=== PATIENT | female | born 1970 | race Caucasian/White ===

== ENCOUNTER 2019-01-06 17:26 | Emergency (ER) | payer SELFPAY ==
[~2019-01-06] VITALS: Ht 172.7 cm; Wt 59.0 kg
[2019-01-06] MEDS ORDERED: HYDROcodone/APAP 5/325MG 1 TAB TABLET PO ONE (18:15)
--- NOTE | 2019-01-06 18:35 | PHYS DOC ---
Past Medical History Past Medical History: No Pertinent History (MICHAEL RATLIFF APRN) Past Surgical History: (MICHAEL RATLIFF APRN) Alcohol Use: None Drug Use: None (MICHAEL RATLIFF APRN) Adult General Chief Complaint Chief Complaint: CHEST WALL PAIN HPI HPI 48 year old female presents to ER for complaints of upper chest pain for the past 3 days after being struck in the chest by a ladder which was falling. Patient reports she was working on the floor when other workers went to get off of the ladder causing it to fall striking her in the upper portion of her chest. Patient denies any other injury. Patient states over the past few days it has hurt when she takes a deep breath however she has no exertional shortness of air. Patient denies fever, productive cough, hemoptysis, or palpitations. She has been taking Aleve daily for the pain last dose at 5 AM today. She is a daily cigarette smoker. She denies travel or past history of blood clots or clotting disorder. Patient's LMP was 2-3 years ago stating she has gone through menopause. (MICHAEL RATLIFF APRN) Review of Systems Review of Systems Constitutional: Denies fever or chills [] Eyes: Denies change in visual acuity, redness, or eye pain [] HENT: Denies nasal congestion or sore throat [] Respiratory: Denies cough or shortness of breath [] Cardiovascular: Reports upper chest pain- denies palpitations GI: Denies abdominal pain, nausea, vomiting, bloody stools or diarrhea [] : Denies dysuria or hematuria [] Musculoskeletal: Denies back/neck pain or joint pain [] Integument: Denies rash or skin lesions [] Neurologic: Denies headache, focal weakness or sensory changes. Denies dizziness All other systems were reviewed and found to be within normal limits, except as documented in this note. (MICHAEL RATLIFF APRN) Current Medications Current Medications Current Medications Medications (Trade) Dose Ordered Sig/Adrianna Start Time Stop Time Status Last Admin Dose Admin Acetaminophen/ Hydrocodone Bitart (Lortab 5/325) 1 tab 1X ONCE 01/06/19 18:15 01/06/19 18:16 DC 01/06/19 18:40 1 TAB (ONEL SMITH MD) Allergies Allergies Allergies Coded Allergies Type Severity Reaction Last Updated Verified No Known Drug Allergies 01/06/19 No (ONEL SMITH MD) Physical Exam Physical Exam Constitutional: Well developed, well nourished, no acute distress, non-toxic appearance. [] HENT: Normocephalic, atraumatic, oropharynx moist, nose normal. [] Eyes: Pupils equal, conjunctiva normal, no discharge. [] Neck: Normal range of motion, no tenderness, supple, no stridor. [] Cardiovascular: Heart rate regular rhythm, no murmur [] Lungs & Thorax: Bilateral expiratory wheezing- pt is reluctant to take deep breath. Diminished air movement in bases. Resp. equal. No flailed chest/crepitus or palp. deformity. No ecchymosis to chest wall. Speaking in full sentences. Abdomen: Bowel sounds normal, soft, no tenderness Skin: Warm, dry, no erythema, no rash. [] Back: No tenderness, full ROM Extremities: No tenderness, no cyanosis, no clubbing, ROM intact, no edema. [] Neurologic: Alert and oriented X 3, normal motor function, normal sensory function, no focal deficits noted. [] Psychologic: Affect normal, judgement normal, mood normal. [] (MICHAEL RATLIFF APRN) Current Patient Data Vital Signs Vital Signs Date Time Temp Pulse Resp B/P (MAP) Pulse Ox O2 Delivery O2 Flow Rate FiO2 01/06/19 19:45 84 16 132/81 (98) 98 Room Air 01/06/19 17:30 98.1 98.1 (ONEL SMITH MD) EKG EKG EKG obtained 01/06/19 at 1733 Interpreted by ER physician Sinus rhythm Incomplete rt BBB Rate 91 No STEMI (MICHAEL RATLIFF APRN) Radiology/Procedures Radiology/Procedures [] (MICHAEL RATLIFF APRN) Course & Med Decision Making Course & Med Decision Making Pertinent Imaging studies reviewed. (See chart for details) 1930: Pt was evaluated in the ER for complaints of chest wall injury 3 days ago. Patient had x-ray done and imaging was reviewed by Dr. Smith with no obvious displaced fxs or abnorm. findings. Patient was given dose of [place] while in the ER she had taken Aleve earlier today. EKG was obtained with no acute ST elevation/STEMI. Patient was offered chest CT/labs for further evaluation but preferred no IV, imaging other than chest xray or labs. Patient had bilateral wheezing and was offered DuoNeb treatment she also preferred no additional treatment. Patient states she had some relief in pain following [place] tablet. Patient is requesting to be discharged home without further monitoring or care. Patient has equal nonlabored respirations and is speaking in full sentences. She is denying shortness of air. Will provide patient with incentive spirometer. Smoking cessation was discussed. Will provide patient with small quantity of pain medication with patient being advised to also use Tylenol and/or ibuprofen and if pain severe then she would have stronger pain medication available. Education provided on signs and symptoms to return to ER. Discharge instructions were discussed. Patient to follow-up with primary care physician if symptoms persist or with any concerns. Will provide community clinic resource sheet for follow-up purposes. (MICHAEL RATLIFF APRN) Course & Med Decision Making Staff Physician Addendum: I was working in the ER during the course of this patient's visit. I was available for consultation as needed, but I was not directly involved in the care of this patient. (ONEL SMITH MD) Dragon Disclaimer Dragon Disclaimer This electronic medical record was generated, in whole or in part, using a voice recognition dictation system. (MICHAEL RATLIFF APRN) Departure Departure Impression: Primary Impression: Contusion, chest wall Disposition: 01 HOME, SELF-CARE Condition: STABLE Referrals: NO PCP (PCP) Patient Instructions: Chest Contusion, Incentive Spirometer Additional Instructions: Avoid smoking. Drink plenty of fluids daily. Tylenol and/or ibuprofen as needed for pain as directed on container. Ice and/or heat compress to affected area every 3-4 hours for 20-30 minutes at a time. If symptoms persist or with concerns follow-up with your primary care physician for reevaluation and further care. Scripts Hydrocodone/Apap 5-325 (NORCO 5-325 TABLET) 1 Each Tablet 1 TAB PO PRN Q6HRS PRN for PAIN, #8 TAB 0 Refills No driving or alcohol intake while taking this medication Prov: MICHAEL RATLIFF APRN 01/06/19 MICHAEL RATLIFF APRN Jan 06, 2019 18:35 ONEL SMITH MD Jan 06, 2019 21:22
[2019-01-06] MEDS ORDERED: HYDR-3164 PO (19:40)
[2019-01-06 19:45] VITALS: BP 132/81
--- NOTE | 2019-01-07 02:13 | RAD ---
PA and lateral chest radiograph 01/06/2019 CLINICAL HISTORY: Upper chest pain. Struck in chest 3 days ago by a ladder. PA and lateral digital radiographs of the chest were obtained. No previous studies are available for comparison. The cardiac and mediastinal silhouettes are within normal limits in size and configuration. No acute pulmonary infiltrate is seen. No pleural effusion or pneumothorax is noted. The osseous structures are grossly intact. IMPRESSION: No acute abnormality is seen. Electronically signed by: Bubba Perez MD (01/07/2019 2:10 AM) [id number]
--- NOTE | 2019-01-07 06:33 | EKG ---
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
== END 2019-01-06 19:47 | disposition home or self-care (01) ==
LOC: ER 17:26
DX: S20.219A Contusion of unspecified front wall of thorax, initial encounter (principal); W22.8XXA Striking against or struck by other objects, initial encounter; Y93.89 Activity, other specified; Y92.89 Other specified places as the place of occurrence of the external cause; Y99.8 Other external cause status
CPT/HCPCS: 71046; 93005; 99284

== ENCOUNTER 2019-11-05 11:42 | Emergency (ER) | payer SELFPAY ==
[~2019-11-05] VITALS: Ht 172.7 cm; Wt 59.0 kg
[~2019-11-05 11:42] MED LIST: HYDR-3164 PO
[2019-11-05 11:56] VITALS: BP 131/60
--- NOTE | 2019-11-05 12:11 | PHYS DOC ---
Past Medical History Past Medical History: No Pertinent History Past Surgical History: Smoking Status: Current Every Day Smoker Alcohol Use: None Drug Use: None General Adult EDM: Chief Complaint: WRIST PAIN HPI: HPI: Patient is a 48 year old female who presents with states she has had a ganglion cysts in her right wrist on the radial side for years. She states it has never caused her any problems or gotten any bigger. She states that a week ago she accidentally got her wrist slammed in a door and has had radial bone pain at the wrist and it is to painful to move. She states at times since then she has had numbness or tingling. She states that she has been taking Ibuprofen and using ice. She states she would like to get the ganglion cyst taken out. She states it has not increased in size. She denies skin color or temperature change. Review of Systems: Review of Systems: Musculoskeletal: Denies back pain. Right wrist joint pain. [] Heart Score: Risk Factors: Risk Factors: DM, Current or recent (<one month) smoker, HTN, HLP, family history of CAD, obesity. Risk Scores: Score 0 - 3: 2.5% MACE over next 6 weeks - Discharge Home Score 4 - 6: 20.3% MACE over next 6 weeks - Admit for Clinical Observation Score 7 - 10: 72.7% MACE over next 6 weeks - Early Invasive Strategies Allergies: Allergies: Allergies Coded Allergies Type Severity Reaction Last Updated Verified No Known Drug Allergies 01/06/19 No Physical Exam: PE: Constitutional: Well developed, well nourished, no acute distress, non-toxic appearance. [] HENT: Normocephalic, atraumatic, bilateral external ears normal, oropharynx moist, no oral exudates, nose normal. [] Eyes: PERRLA, EOMI, conjunctiva normal, no discharge. [] Neck: Normal range of motion, no tenderness, supple, no stridor. [] Cardiovascular:Heart rate regular rhythm, no murmur [] Lungs & Thorax: Bilateral breath sounds clear to auscultation [] Abdomen: Bowel sounds normal, soft, no tenderness, no masses, no pulsatile masses. [] Skin: Warm, dry, no erythema, no rash. Wrist cyst. [] Back: No tenderness, no CVA tenderness. [] Extremities: Radial wrist bone pain tenderness, no cyanosis, no clubbing, limited ROM intact, no edema. [] Neurologic: Alert and oriented X 3, normal motor function, normal sensory function, no focal deficits noted. [] Psychologic: Affect normal, judgement normal, mood normal. [] Current Patient Data: Vital Signs: Vital Signs Date Time Temp Pulse Resp B/P (MAP) Pulse Ox O2 Delivery O2 Flow Rate FiO2 11/05/19 11:56 98.4 81 18 131/60 (83) 99 Room Air 98.4 EKG: EKG: [] Radiology/Procedures: Radiology/Procedures: [] Impression: [facility] [address] [place] [address] IMAGING REPORT Signed PATIENT: MAU WEEMS ACCOUNT: [id number] : 1970 LOCATION: ER AGE: 48 SEX: F EXAM STATUS: REG ER ORD. PHYSICIAN: OMKAR FERNANDEZ APRN REASON: pain after arm slammed in a door PROCEDURE: WRIST 3V RIGHT WRIST 3V RIGHT History: Pain. Technique: 3 views right wrist. Comparison: None. Findings: Normal alignment. No fracture. Soft tissues unremarkable. Impression: 1. No acute osseous abnormality. Electronically signed by: Artur Vail DO (11/05/2019 12:48 PM) [id number] DICTATED and SIGNED BY: ARTUR VAIL DO DATE: 11/05/19 1248 Course & Med Decision Making: Course & Med Decision Making Pertinent Labs and Imaging studies reviewed. (See chart for details) Skin pink warm and dry. Cap refill less than 3 seconds. She states that she has tingling to the area at times but not at this item. Full sensations. She states she has a throbbing pain. Radial pulse strong and present. Limited ROM due to pain. She can make a loose fist due to pain. No weakness and no laxity in the joint. No wounds or deformities. Patient is educated that she will need to follow up with a orthopedic for the ganglion cyst. The cyst is soft and nontender. Patient only has radial bone wrist pain tenderness with palpation. Cyst is slightly larger than pea sized. [] Dragon Disclaimer: Dragon Disclaimer: This electronic medical record was generated, in whole or in part, using a voice recognition dictation system. Departure Departure Impression: Primary Impression: Wrist pain, right Disposition: 01 HOME, SELF-CARE Condition: STABLE Referrals: NO PCP (PCP) JANAE PEREZ MD Patient Instructions: Contusion, [id number], Ganglion Cyst Additional Instructions: Follow-up with orthopedic. Wear the splint for the next 1 to 2 weeks. Use ice and ibuprofen to help with your pain. OMKAR FERNANDEZ [employer]CHO[employer] DRAFTING TEACHER November 05, 2019 12:11
--- NOTE | 2019-11-05 12:51 | RAD ---
WRIST 3V RIGHT History: Pain. Technique: 3 views right wrist. Comparison: None. Findings: Normal alignment. No fracture. Soft tissues unremarkable. Impression: 1. No acute osseous abnormality. Electronically signed by: Artur Vail DO (11/05/2019 12:48 PM) [id number]
== END 2019-11-05 13:12 | disposition home or self-care (01) ==
LOC: ER 11:42
DX: M67.431 Ganglion, right wrist (principal); M25.531 Pain in right wrist; F17.200 Nicotine dependence, unspecified, uncomplicated; Z98.890 Other specified postprocedural states
CPT/HCPCS: 29125; 73110; 99283

== ENCOUNTER 2020-11-28 10:23 | Emergency (ER) | payer SELFPAY ==
[~2020-11-28] VITALS: Ht 172.7 cm; Wt 57.0 kg
--- NOTE | 2020-11-28 11:29 | PHYS DOC ---
Past Medical History Past Medical History: No Pertinent History Past Surgical History: Smoking Status: Current Every Day Smoker Alcohol Use: None Drug Use: None General Adult EDM: Chief Complaint: HAND PROBLEM HPI: HPI: Patient is a 49 year old female who presents the ED today requesting a note to return to work with no restrictions. Patient states she fell down on landing on her left hand. She states the hand is not broken because she can use it. She states she needs a note to states she can return to work. Patient states she has small amount of pain to the left hand only on touching the dorsal aspect of the hand. States the pain is throbbing and intermittent. States heat has been helping with the pain. Review of Systems: Review of Systems: Constitutional: Denies fever or chills. [] Musculoskeletal: Reports left hand injury and requesting a note for work Integument: Denies rash. [] Neurologic: Denies headache, focal weakness or sensory changes. [] Psychiatric: Denies depression or anxiety. [] Heart Score: C/O Chest Pain: N/A Risk Factors: Risk Factors: DM, Current or recent (<one month) smoker, HTN, HLP, family history of CAD, obesity. Risk Scores: Score 0 - 3: 2.5% MACE over next 6 weeks - Discharge Home Score 4 - 6: 20.3% MACE over next 6 weeks - Admit for Clinical Observation Score 7 - 10: 72.7% MACE over next 6 weeks - Early Invasive Strategies Allergies: Allergies: Allergies Coded Allergies Type Severity Reaction Last Updated Verified No Known Drug Allergies 01/06/19 No Physical Exam: PE: Constitutional: Well developed, well nourished, no acute distress, non-toxic appearance. [] Skin: Warm, dry, no erythema, no rash. [] Back: No tenderness, no CVA tenderness. [] Extremities: Left hand with no obvious deformity, trace amount of swelling noted on the left dorsal hand along the mid ring finger and fifth finger metacarpals. Full range of motion to the left hand and fingers. Adequate radial, medial, ulnar sensation to the left hand. +2 left radial pulse. Cap refill less than 2 seconds in left fingers Neurologic: Alert and oriented X 3, normal motor function, normal sensory function, no focal deficits noted. [] Psychologic: tweaking around the chair EKG: EKG: [] Radiology/Procedures: Radiology/Procedures: [] Course & Med Decision Making: Course & Med Decision Making Pertinent Labs and Imaging studies reviewed. (See chart for details) This is a 49-year-old female patient presenting to the ED today requesting a note to return to work, patient failed 4 days ago, she states she did not break the left hand though nobody did any x-rays. She states she just needs a note to return to work. Informed patient i recommend she gets x-ray just to make sure it is not broken. She states she does not want to go through all that, she needs a note to return to work. Note was provided but encouraged to consider getting x-rays of the left hand through the PCPs' office Dragon Disclaimer: Dragon Disclaimer: This electronic medical record was generated, in whole or in part, using a voice recognition dictation system. Departure Departure Impression: Primary Impression: Hand pain, left Additional Impression: Fall Qualified Codes: W19.XXXA - Unspecified fall, initial encounter Disposition: HOME / SELF CARE / HOMELESS Condition: STABLE Referrals: NO PCP (PCP) BONNY AVILES DO follow up with your doctor next week or the provided doctor Patient Instructions: Joint Sprain Additional Instructions: Please consider getting x-rays of the left hand. You can do this through your primary care doctor's office. Try ice and elevate the hand. Please take [id number] pain relievers as needed ANNALEE MOORE CONFERENCE PLANNING MANAGER Nov 28, 2020 11:29
== END 2020-11-28 12:00 | disposition home or self-care (01) ==
LOC: ER 10:23
DX: M79.642 Pain in left hand (principal); G89.11 Acute pain due to trauma; F17.200 Nicotine dependence, unspecified, uncomplicated; W18.39XA Other fall on same level, initial encounter; Y93.89 Activity, other specified; Y92.89 Other specified places as the place of occurrence of the external cause; Y99.8 Other external cause status
CPT/HCPCS: 99282